=== PATIENT | male | born 1960 | race Caucasian/White ===

== ENCOUNTER 2024-01-24 16:43 | Emergency (ER) | payer BC ==
--- NOTE | 2024-01-24 16:46 | ERPHSYRPT ---
- History of Present Illness Time Seen by Provider: 01/24/24 16:46 Source: patient, family Exam Limitations: no limitations Physician History: This is a 63-year-old obese white male patient of Dr. Roa who arrives by private vehicle accompanied by his spouse. The patient had his thyroid medication changed (increased) approximately 1 week ago. 2 days ago, the patient began having dizziness and headache spells intermittently. This happened in the past when his thyroid medication was increased. He denies head injury. He has had no nausea vomiting or diarrhea symptoms. He has no visual changes. He has no earache. He denies sinus pressure. Timing/Duration: day(s) (2) Severity: mild Character of Deficits: none Deficits: no difficulties Baseline/Normal Cognition: alert oriented x 3 Current Cognition: alert oriented x 3 Baseline Gait: walks w/o assistance Associated Symptoms: denies symptoms Allergies/Adverse Reactions: No Known Drug Allergies Allergy (Unverified 01/24/24 16:52) Travel Risk - International Travel Have you traveled outside of the country in past 3 weeks: No - Emerging Infectious Disease Are you exhibiting symptoms associated with any current EIDs: No - Review of Systems Constitutional: No Symptoms Eyes: No Symptoms Ears, Nose, & Throat: No Symptoms Respiratory: No Symptoms Cardiac: No Symptoms Abdominal/Gastrointestinal: No Symptoms Genitourinary Symptoms: No Symptoms Musculoskeletal: No Symptoms Skin: No Symptoms Neurological: Dizziness, Headache Psychological: No Symptoms Endocrine: No Symptoms Hematologic/Lymphatic: No Symptoms Immunological/Allergic: No Symptoms All Other Systems: Reviewed and Negative - Past Medical History Pertinent Past Medical History: Yes - Nursing Vital Signs Nursing Vital Signs: Initial Vital Signs Temperature 97.2 F 01/24/24 16:54 Pulse Rate 104 H 01/24/24 16:54 Respiratory Rate 18 01/24/24 16:54 Blood Pressure 161/98 01/24/24 16:54 O2 Sat by Pulse Oximetry 97 01/24/24 16:54 Pain Scale Pain Intensity 6 - Cuca Coma Scale Best Eye Response (Cuca): (4) open spontaneously Best Verbal Response (Cuca): (5) oriented Best Motor Response (Cuca): (6) obeys commands [place] Total: 15 - Physical Exam General Appearance: no apparent distress, alert, anxiety, obese Eye Exam: bilateral eye: normal inspection, PERRL, EOMI Ears, Nose, Throat Exam: normal ENT inspection, moist mucous membranes Neck Exam: normal inspection, non-tender, supple, full range of motion Respiratory: normal breath sounds, lungs clear, airway intact, No chest tenderness, No respiratory distress Cardiovascular: regular rate/rhythm, normal heart sounds, normal peripheral pulses Gastrointestinal: soft, normal bowel sounds, No tenderness Rectal Exam: not done Back Exam: normal inspection, normal range of motion, No CVA tenderness, No vertebral tenderness Extremity Exam: normal inspection, normal range of motion, pelvis stable Mental Status: alert, oriented x 3, cooperative material handler loader Exam: normal hearing, normal speech, PERRL Coordination/Gait: normal finger to nose, normal gait, normal cerebellar function Motor/Sensory: no motor deficit, no sensory deficit Skin Exam: normal color, warm, dry SpO2 Interpretation: normal O2 Delivery: Room Air - Course Nursing assessment & vital signs reviewed: Yes EKG Interpreted by Me: RATE (105), Sinus Tach, NORMAL AXIS, NORMAL INTERVALS, NORMAL QRS, Other (No acute ischemic changes on today's twelve-lead EKG.) Ordered Tests: Active Orders 24 hr Category Date Time Status Manager Mail STAT Care 01/24/24 17:12 Completed EKG-ER Only STAT Care 01/24/24 17:11 Completed IV Insertion STAT Care 01/24/24 17:11 Completed HEAD WITHOUT CONTRAST [CT] Stat Exams 01/24/24 17:12 Taken CBC W DIFF Stat Lab 01/24/24 17:13 Completed CMP Stat Lab 01/24/24 17:13 Completed ETHYL ALCOHOL Stat Lab 01/24/24 17:13 Completed MAGNESIUM Stat Lab 01/24/24 17:13 Completed TROPONIN Q4H Lab 01/24/24 17:13 Completed TSH [TSH, 3RD Generation] Stat Lab 01/24/24 17:13 Completed UA W/RFX UR CULTURE Stat Lab 01/24/24 17:13 Completed Lab/Rad Data: Laboratory Result Diagrams 01/24/24 17:13 01/24/24 17:13 Laboratory Results 01/24/24 01/24/24 01/24/24 Range/Units 17:13 17:13 17:13 WBC (4.23-9.07) x10^3/uL RBC (4.63-6.08) x10^6/uL Hgb (13.7-17.5) g/dL Hct (40.1-51.0) % MCV (79.0-92.2) fL MCH (25.7-32.2) pg MCHC (32.3-36.5) g/dL RDW (11.6-14.4) % Plt Count (163-337) x10^3/uL MPV (9.4-12.4) fL Gran % (34.0-67.9) % Immature Gran % (Auto) (0.001-0.429) % Nucleat RBC Rel Count (0.00-0.2) % Eos # (Auto) (0.04-0.54) x10^3/uL Immature Gran # (Auto) (0.001-0.031) x10^3u/L Absolute Lymphs (auto) (1.32-3.57) x10^3/uL Absolute Monos (auto) (0.30-0.82) x10^3/uL Absolute Nucleated RBC (0.00-0.012) x10^3u/L Lymphocytes % (21.8-53.1) % Monocytes % (5.3-12.2) % Eosinophils % (0.8-7.0) % Basophils % (0.2-1.2) % Absolute Granulocytes (1.78-5.38) x10^3/uL Basophils # (0.01-0.08) x10^3/uL Sodium (135-145) mmol/L Potassium (3.5-5.1) mmol/L Chloride (98-107) mmol/L Carbon Dioxide (22-30) mmol/L Anion Gap (5-15) MEQ/L BUN (9-20) mg/dL Creatinine (0.66-1.25) mg/dL Estimated GFR ML/MIN Glucose (74-106) mg/dL Calcium (8.4-10.2) mg/dL Magnesium (1.6-2.3) mg/dL Total Bilirubin (0.2-1.3) mg/dL AST (17-59) U/L ALT (0-50) U/L Alkaline Phosphatase (38-126) U/L Troponin I < 0.012 (0.000-0.033) ng/mL Serum Total Protein (6.3-8.2) g/dL Albumin (3.5-5.0) g/dL Free T4 1.41 (0.78-2.19) ng/dL TSH 3rd Generation 10.994 H (0.470-4.680) mIU/L Urine Color (Yellow) Urine Appearance (Clear) Urine pH (4.6-8.0) Ur Specific [place] (1.005-1.030) Urine Protein (Negative) Urine Glucose (UA) (Negative) mg/dL Urine Ketones (Negative) Urine Blood (Negative) Urine Nitrite (Negative) Urine Bilirubin (Negative) Urine Urobilinogen (0.2) mg/dL Ur Leukocyte Esterase (Negative) U Hyaline Cast (Auto) (0-2) /LPF Urine Microscopic RBC (0-5) /HPF Urine Microscopic WBC (0-5) /HPF Ur Epithelial Cells (None Seen) /HPF Urine Bacteria (None Seen) /HPF Urine Culture Reflexed (NO) Ethyl Alcohol (0-10) mg/dL 01/24/24 01/24/24 01/24/24 Range/Units 17:13 17:13 17:13 WBC 7.8 (4.23-9.07) x10^3/uL RBC 5.28 (4.63-6.08) x10^6/uL Hgb 15.6 (13.7-17.5) g/dL Hct 46.4 (40.1-51.0) % MCV 87.9 (79.0-92.2) fL MCH 29.5 (25.7-32.2) pg MCHC 33.6 (32.3-36.5) g/dL RDW 13.5 (11.6-14.4) % Plt Count 239 (163-337) x10^3/uL MPV 9.9 (9.4-12.4) fL Gran % 55.5 (34.0-67.9) % Immature Gran % (Auto) 0.1 (0.001-0.429) % Nucleat RBC Rel Count 0.0 (0.00-0.2) % Eos # (Auto) 0.15 (0.04-0.54) x10^3/uL Immature Gran # (Auto) 0.01 (0.001-0.031) x10^3u/L Absolute Lymphs (auto) 2.45 (1.32-3.57) x10^3/uL Absolute Monos (auto) 0.84 H (0.30-0.82) x10^3/uL Absolute Nucleated RBC 0.00 (0.00-0.012) x10^3u/L Lymphocytes % 31.4 (21.8-53.1) % Monocytes % 10.8 (5.3-12.2) % Eosinophils % 1.9 (0.8-7.0) % Basophils % 0.3 (0.2-1.2) % Absolute Granulocytes 4.34 (1.78-5.38) x10^3/uL Basophils # 0.02 (0.01-0.08) x10^3/uL Sodium 136 (135-145) mmol/L Potassium 4.3 (3.5-5.1) mmol/L Chloride 103 (98-107) mmol/L Carbon Dioxide 20 L (22-30) mmol/L Anion Gap 16.8 H (5-15) MEQ/L BUN 23 H (9-20) mg/dL Creatinine 1.31 H (0.66-1.25) mg/dL Estimated GFR 61.2 ML/MIN Glucose 183 H (74-106) mg/dL Calcium 9.6 (8.4-10.2) mg/dL Magnesium 2.1 (1.6-2.3) mg/dL Total Bilirubin 0.60 (0.2-1.3) mg/dL AST 41 (17-59) U/L ALT 44 (0-50) U/L Alkaline Phosphatase 76 (38-126) U/L Troponin I (0.000-0.033) ng/mL Serum Total Protein 7.4 (6.3-8.2) g/dL Albumin 4.6 (3.5-5.0) g/dL Free T4 (0.78-2.19) ng/dL TSH 3rd Generation (0.470-4.680) mIU/L Urine Color Yellow (Yellow) Urine Appearance Clear (Clear) Urine pH 6.5 (4.6-8.0) Ur Specific [place] 1.025 (1.005-1.030) Urine Protein Negative (Negative) Urine Glucose (UA) >=1000 A (Negative) mg/dL Urine Ketones Negative (Negative) Urine Blood Negative (Negative) Urine Nitrite Negative (Negative) Urine Bilirubin Negative (Negative) Urine Urobilinogen 0.2 (0.2) mg/dL Ur Leukocyte Esterase Negative (Negative) U Hyaline Cast (Auto) NONE SEEN (0-2) /LPF Urine Microscopic RBC 0-2 (0-5) /HPF Urine Microscopic WBC 0-2 (0-5) /HPF Ur Epithelial Cells None Seen (None Seen) /HPF Urine Bacteria None Seen (None Seen) /HPF Urine Culture Reflexed NO (NO) Ethyl Alcohol < 10 (0-10) mg/dL - Progress Progress: unchanged Progress Note: 01/24/24 17:54 My medical decision making of the assignment of moderate complexity to this patient's medical issue today is based on review of the patient's past medical history, review of the patient's medication list, review the patient drug allergy list, history present illness and physical findings on examination. The workup in this patient includes placement of intravenous line, CBC, CMP, twelve- lead EKG, troponin level, free T4, TSH, magnesium level, urinalysis, ethyl alcohol level, CT scan of the head without contrast. Differential diagnosis includes but is not limited to acute intracranial abnormality, thyroid function test abnormalities, urinary tract infection, anemia, arrhythmias 01/24/24 19:37 I interpreted the laboratory data results. Based on the laboratory data results patient has subclinical hypothyroidism. There are no other acute, emergent medical issues. CT scan of the head without contrast was interpreted by the radiologist. The impression states no comparison films. Nonacute senile brain 01/24/24 20:36 I interpreted the twelve-lead EKG that was performed on 01/24/2024 at 1653. The twelve-lead EKG shows a heart rate of 105 bpm. The rhythm is sinus tachycardia. There is normal axis deviation, normal QT interval, normal QRS. QTc is 457. There is no evidence of any acute ischemia on today's twelve-lead EKG. Counseled pt/family regarding: lab results, diagnosis, need for follow-up, rad results Medical Desision Making - Independent Historian Additional History obtained from: Spouse - Diagnostic Testing Diagnostic test were ordered, analyzed, and reviewed by me: Yes Radiological Interpretation: Reviewed by me, Teleradiologist Report - Risk of complications Low Risk: Low risk of morbidity from additional dx testing or treatment - Departure Departure Disposition: Home Clinical Impression: Subclinical hypothyroidism, Dizziness Condition: Stable Critical Care Time: No Referrals: HARPER ROA MD [Primary Care Provider] - Follow up/PCP as directed Instructions: Dizziness, Nonvertigo, (DC) Additional Instructions: Drink plenty fluids. Hold your thyroid medication until you speak with your prescribing provider. Call your prescribing provider tomorrow, 01/25/2024 to obtain further instructions and management of your medications. Continue your other medication as prescribed.
[2024-01-24 16:55] VITALS: TEMP 97.2
[2024-01-24 17:57] LABS: Absolute Neutrophil Ct (ANC) 4.34 x10^3/uL (1.78-5.38); BASOPHIL % 0.3 % (0.2-1.2); Basophil (Absolute #) 0.02 x10^3/uL (0.01-0.08); Eosinophil % 1.9 % (0.8-7.0); Eosinophil (Absolute #) 0.15 x10^3/uL (0.04-0.54); Hematocrit 46.4 % (40.1-51.0); Hemoglobin 15.6 g/dL (13.7-17.5); IMMATURE GRAN # 0.01 x10^3u/L (0.001-0.031); IMMATURE GRAN % 0.1 % (0.001-0.429); Lymphocyte (Absolute #) 2.45 x10^3/uL (1.32-3.57); Lymphocytes % 31.4 % (21.8-53.1); Mean Cell Volume 87.9 fL (79.0-92.2); Mean Corpuscular Hemoglobin 29.5 pg (25.7-32.2); Mean Corpuscular Hgb Concent. 33.6 g/dL (32.3-36.5); Mean Platelet Volume 9.9 fL (9.4-12.4); Monocyte (Absolute #) 0.84 x10^3/uL (0.30-0.82); Monocytes % 10.8 % (5.3-12.2); Neutrophil % 55.5 % (34.0-67.9); Platelet Count 239 x10^3/uL (163-337); Red Blood Count 5.28 x10^6/uL (4.63-6.08); Red Cell Distribution Width 13.5 % (11.6-14.4); White Blood Count 7.8 x10^3/uL (4.23-9.07)
[2024-01-24 18:10] LABS: ALBUMIN 4.6 g/dL (3.5-5.0); ALKALINE PHOSPHATASE 76 U/L (38-126); ANION GAP 16.8 MEQ/L (5-15); BLOOD UREA NITROGEN 23 mg/dL (9-20); CHLORIDE 103 mmol/L (98-107); Calcium 9.6 mg/dL (8.4-10.2); Carbon Dioxide 20 mmol/L (22-30); Creatinine 1 1.31 mg/dL (0.66-1.25); EST GLOMERULAR FILTRATION RATE 61.2 ML/MIN; ETHYL ALCOHOL < 10 mg/dL (0-10); Glucose 183 mg/dL (74-106); MAGNESIUM 2.1 mg/dL (1.6-2.3); Potassium 4.3 mmol/L (3.5-5.1); SGOT/AST 41 U/L (17-59); SGPT/ALT 44 U/L (0-50); SODIUM 136 mmol/L (135-145); Total Protein 7.4 g/dL (6.3-8.2)
[2024-01-24 18:16] LABS: Appearance Clear (Clear); Bacteria None Seen /HPF (None Seen); Bilirubin Negative (Negative); Blood Negative (Negative); Epithelial Cells None Seen /HPF (None Seen); Glucose, Urine >=1000 mg/dL (Negative); Hyaline Casts NONE SEEN /LPF (0-2); Ketones Negative (Negative); Leukocyte Esterase Negative (Negative); Nitrite Negative (Negative); Ph 6.5 (4.6-8.0); Protein,Urine Dip Negative (Negative); RBC 0-2 /HPF (0-5); Specific Gravity 1.025 (1.005-1.030); Urobilinogen 0.2 mg/dL (0.2); WBC 0-2 /HPF (0-5)
[2024-01-24 19:46] VITALS: BP 129/89; PULSE 88; RESP 16; O2SAT 95
--- NOTE | 2024-01-25 08:35 | XRAY ---
Indication: Dizziness. Headache. Multiple contiguous axial images obtained through the head without contrast. Comparison: None Age-appropriate global atrophy, minimal periventricular degenerative micro-ischemia bilaterally, and remote lacunar infarct left external capsule. No acute intracranial hemorrhage, abnormal extra-axial fluid collection, or mass effect. Fourth ventricle is midline without hydrocephalus. [place]-white matter differentiation preserved. Bony calvarium intact. Visualized paranasal sinuses and mastoid air cells are clear. 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
== END 2024-01-24 19:50 | disposition home or self-care (01) ==
LOC: ED 16:43
DX: E03.8 Other specified hypothyroidism (principal); R42 Dizziness and giddiness; R51.9 Headache, unspecified
CPT/HCPCS: 36000; 36415; 70450; 80053; 81001; 82077; 83735; 84439; 84443; 84484; 85025; 93005; 93041; 99284; 99285